=== PATIENT | female | born 1960 | race Asian ===

== ENCOUNTER 2016-12-28 09:12 | Emergency (ER) | payer OTHER ==
[~2016-12-28] VITALS: Ht 152.4 cm; Wt 63.6 kg
[~2016-12-28 09:12] MED LIST: ATEN25TA7 PO; CLOP75TA14; CREST10T PO; GLU500 PO; INSU100C4 SUBQ; INSU100V5 SQ; ONDA4TAB6 PO; POTASSIUM CHLORIDE PO; [UNRECOGNIZED DRUG - CODE] SL
[2016-12-28 09:22] VITALS: BP 159/85; PULSE 69; RESP 10; O2SAT 99
--- NOTE | 2016-12-28 09:57 | ED.REPORT ---
HPI-URI / Cough / Cold Date of Service Dec 28, 2016 ED Provider: Orquidea Hernandez MD Pt is a 56 year old female with a hx of DM, HTN, and a stroke presenting to the ED complaining of flu symptoms onset 4 days ago. She reports a subjective fever , chills, joint aching, nausea, vomiting x1 per day, malaise, headache and congestion. Denies cough or diarrhea. Pt has been taking Tylenol at home with some relief. Nursing Notes Stated Complaint: CHILLS Chief Complaint: FLU/Cold Symptoms Nursing Notes Reviewed: Yes Allergies: Coded Allergies: metoprolol (Verified Allergy, Intermediate, light headed, 12/10/15) potassium (Verified Allergy, Intermediate, light headed, 12/10/15) latex (Verified Allergy, Mild, 12/10/15) Iodinated Contrast Media - Oral and (Verified Allergy, Unknown, 12/10/15) Salicylates (Verified Allergy, Unknown, 12/10/15) Sulfa (Sulfonamide Antibiotics) (Verified Allergy, Unknown, 12/10/15) aspirin (Verified Allergy, Unknown, 12/10/15) felodipine (Verified Allergy, Unknown, 12/10/15) lisinopril (Verified Allergy, Unknown, 12/10/15) losartan (Verified Allergy, Unknown, 12/10/15) simvastatin (Verified Allergy, Unknown, 12/10/15) Scheduled ([potassium Chloride]) 20 MEQ PO DAILY Atenolol-Expunged Drug, Do Not Renew! (Atenolol-Expunged Drug, Do Not Renew!) 25 Mg Tablet 50 MG PO BID INSULIN LISPRO-Expunged Drug, Do Not Renew! (Humulog-Expunged Drug, Do Not Renew !) 100 Unit/1 Ml Vial 100 UNIT SQ TIDAC Insulin Glargine-Expunged Drug, Do Not Renew! (Lantus-Expunged Drug, Do Not Renew!) 100 Units/Ml Pen.ij.kit 30 UNIT SUBQ BID Metformin-Expunged Drug, Do Not Renew! (Metformin-Expunged Drug, Do Not Renew!) 500 Mg Tablet 500 MG PO BID Ondansetron ODT (Ondansetron ODT) 8 Mg Tab.rapdis 8 MG PO Q6H Rosuvastatin-Expunged Drug, Do Not Renew! (Crestor-Expunged Drug, Do Not Renew! ) 10 Mg Tablet 10 MG PO HS Therapeutic Sub: Rosuvastatin 5MG=Simvastatin 20MG; Rosuvastatin 10/20/40MG= Simvastatin 40MG Scheduled PRN Nitroglycerin-Expunged Drug, Do Not Renew! (Nitroglycerin-Expunged Drug, Do Not Renew!) 60 [place]/4.9 Gm [place] 0.4 SPRAY SL Q5MIN PRN PRN Ondansetron (Zofran) 4 Mg Tablet 4 MG PO Q4H PRN PRN For Nausea Miscellaneous Medications Clopidogrel-Expunged Drug, Do Not Renew! (Plavix-Expunged Drug, Do Not Renew!) 75 Mg Tablet General Time Seen by MD: 09:56 Chief Complaint Fever (Subjective) Hx Obtained From: Patient Arrived By: Walk-in Onset Occurred: 4 days ago Symptom Duration: Since onset Context: Immunization Status Immunizations Not Up to Date: Seasonal influenza Recent Healthcare: No recent doctor visit, No recent hospitalization Similar Sx Previous: No Past Medical History Past Medical History Reports: Diabetes mellitus, Hyperlipidemia, Hypertension, Stroke Past Surgical History no surgeries Smoking History Never Smoker Social History Alcohol Use: Denies alcohol use Drug Use: Denies drug use 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 Musculoskeletal: Reports: Joint pain Physical Exam Initial Vital Signs Vital Signs (First) Date Time Temp Pulse Resp B/P Pulse Ox O2 Delivery O2 Flow Rate FiO2 12/28/16 09:22 36.6 69 10 159/85 99 Room Air Initial VS: Reviewed, Vital signs abnormal Cardiovascular: Regular rate & rhythm, Heart sounds normal, Intact distal pulses Abdomen / GI: Soft, Non-tender, No guarding, No rebound, No distention Extremities: Vascular intact, Neuro intact, No swelling, No tenderness Skin: Warm, Dry, No cyanosis Neurologic: Alert, Oriented, Nonfocal Psychiatric: Mood/affect normal, Behavior normal, Normal thought content General/Constitutional: Awake, Alert, Well appearing ENT: Atraumatic, Airway patent, Mucous membranes moist Respiratory / Chest: Breath sounds NL, Breath sounds = bilat, No respiratory distress, No rales, No rhonchi, No wheezing, No retractions, No stridor Neck: No adenopathy, No masses Bilateral lateral neck tenderness. Re-Eval/Medical Decision Med Decision/Clinical Course The patient presents with multiple complaints are consistent with a viral upper respiratory infection. There is no sign of secondary infection such as pneumonia, tonsillitis, retropharyngeal abscess. The patient is well hydrated and can continue symptomatic treatment. Re-Evaluation/Progress : Time of Eval: 10:21 Patient Status: Condition improved Re-Evaluation/Progress Note: Discussed plan for discharge. Pt understands and agrees with plan. Counseled Regarding: Diagnosis, Lab results, Need for follow-up, When/why to return to ED Discharge & Departure Impression: Primary Impression: Upper respiratory infection URI type: unspecified URI Qualified Code: J06.9 - Acute upper respiratory infection, unspecified Disposition: Home Discharge Condition All VS Reviewed: Yes Condition: Improved Patient Instructions: Upper Respiratory Infection (ED) Additional Instructions: No dangerous cause of your symptoms was identified today. Drink plenty of fluids and get lots of rest. If you develop any new or worsening symptoms, or signs of infection, return to the ER. Referrals: Mary Kay Latif (PCP) Rashel Attestation Portions of this note were transcribed by Phyllis Colon. I, Dr. Hernandez personally performed the history, physical exam and medical decision-making; I reviewed and confirmed the accuracy of the information in the transcribed note. Signed by : Rashel Recinos, 12/28/2016 and 1020. copies to: Mary Kay Latif Jena M MD Dec 28, 2016 09:57 PHYLLIS COLON Dec 28, 2016 10:04
[2016-12-28] MEDS ORDERED: ONDA8TAB10 PO (10:08)
[2016-12-28] MEDS ORDERED: Ondansetron 8 mg ODT Tablet PO ONE (10:10)
[2016-12-28 10:25] VITALS: BP 130/77; PULSE 69; RESP 16; O2SAT 97
== END 2016-12-28 10:24 | disposition home or self-care (01) ==
LOC: SED 09:12
DX: J06.9 Acute upper respiratory infection, unspecified (principal); I10 Essential (primary) hypertension; E11.9 Type 2 diabetes mellitus without complications; Z86.73 Personal history of transient ischemic attack (TIA), and cerebral infarction without residual deficits; Z79.899 Other long term (current) drug therapy; Z79.4 Long term (current) use of insulin; Z79.84 Long term (current) use of oral hypoglycemic drugs; Z88.2 Allergy status to sulfonamides; Z88.8 Allergy status to other drugs, medicaments and biological substances; Z91.041 Radiographic dye allergy status; Z91.040 Latex allergy status

== ENCOUNTER 2017-06-26 12:46 | Emergency (ER) | payer OTHER ==
[~2017-06-26] VITALS: Ht 152.4 cm; Wt 65.0 kg
[~2017-06-26 12:46] MED LIST changes: +ONDA8TAB10 PO
[2017-06-26 12:51] VITALS: BP 168/83; PULSE 78; RESP 12; O2SAT 99
--- NOTE | 2017-06-26 13:13 | ED.REPORT ---
HPI-Dizziness / Weakness Date of Service Jun 26, 2017 ED Provider: Bryn Driver Pt is a 57 y/o female with a history of DM, hypertension, and hyperlipidemia who presents to the ED c/o hypoglycemia onset this morning. She states that she took her blood sugar this morning and it was above 100, but when she was at work , she noticed it going down to the 60's and 50's despite eating and drinking orange juice. Additional symptoms include generalized weakness, numbness/ tingling in her fingers, diaphoresis, temporary vision loss, neck pain, and neuropathy in her feet that is baseline. She denies fever, cough, SOB, or any other symptoms. She had this happen previously and saw enhanced environmental operator, Dr. Eb Collazo for it. He said that if her insulin pump ever stopped working again, she should contact him to adjust the settings on her pump. Nursing Notes Stated Complaint: BLOOD SUGAR LOW/DIABETES Chief Complaint: General Complaint Nursing Notes Reviewed: Yes Allergies: Coded Allergies: metoprolol (Verified Allergy, Intermediate, light headed, 12/10/15) potassium (Verified Allergy, Intermediate, light headed, 12/10/15) latex (Verified Allergy, Mild, 12/10/15) Iodinated Contrast- Oral and IV Dye (Verified Allergy, Unknown, 12/10/15) Salicylates (Verified Allergy, Unknown, 12/10/15) Sulfa (Sulfonamide Antibiotics) (Verified Allergy, Unknown, 12/10/15) aspirin (Verified Allergy, Unknown, 12/10/15) felodipine (Verified Allergy, Unknown, 12/10/15) lisinopril (Verified Allergy, Unknown, 12/10/15) losartan (Verified Allergy, Unknown, 12/10/15) simvastatin (Verified Allergy, Unknown, 12/10/15) Scheduled ([potassium Chloride]) 20 MEQ PO DAILY Atenolol-Expunged Drug, Do Not Renew! (Atenolol-Expunged Drug, Do Not Renew!) 25 Mg Tablet 50 MG PO BID INSULIN LISPRO-Expunged Drug, Do Not Renew! (Humulog-Expunged Drug, Do Not Renew !) 100 Unit/1 Ml Vial 100 UNIT SQ TIDAC Insulin Glargine-Expunged Drug, Do Not Renew! (Lantus-Expunged Drug, Do Not Renew!) 100 Units/Ml Pen.ij.kit 30 UNIT SUBQ BID Metformin-Expunged Drug, Do Not Renew! (Metformin-Expunged Drug, Do Not Renew!) 500 Mg Tablet 500 MG PO BID Ondansetron ODT (Ondansetron ODT) 8 Mg Tab.rapdis 8 MG PO Q6H Rosuvastatin-Expunged Drug, Do Not Renew! (Crestor-Expunged Drug, Do Not Renew! ) 10 Mg Tablet 10 MG PO HS Therapeutic Sub: Rosuvastatin 5MG=Simvastatin 20MG; Rosuvastatin 10/20/40MG= Simvastatin 40MG Scheduled PRN Nitroglycerin-Expunged Drug, Do Not Renew! (Nitroglycerin-Expunged Drug, Do Not Renew!) 60 [place]/4.9 Gm [place] 0.4 SPRAY SL Q5MIN PRN PRN Ondansetron (Zofran) 4 Mg Tablet 4 MG PO Q4H PRN PRN For Nausea Miscellaneous Medications Clopidogrel-Expunged Drug, Do Not Renew! 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 Musculoskeletal: Reports: Neck pain Physical Exam Initial Vital Signs Vital Signs (First) Date Time Temp Pulse Resp B/P Pulse Ox O2 Delivery O2 Flow Rate FiO2 06/26/17 12:51 35.8 78 12 168/83 99 Room Air Initial VS: Reviewed Neck: Supple, Full range of motion Skin: Warm, Dry, No cyanosis Psychiatric: Mood/affect normal, Behavior normal, Normal thought content General/Constitutional: Awake, Alert Appearance / Presentation: Positive: Obese Head / Eyes: Atraumatic, Normocephalic Respiratory / Chest: Atraumatic, Breath sounds NL, Breath sounds = bilat, No respiratory distress Cardiovascular: Heart rate NL, Regular rhythm, Heart sounds NL Neurologic: Oriented X3, Speech NL Lower Extremity / Pelvis / MS: Atraumatic, Full range of motion Sensory deficit to toes symmetrically Upper Extremity / MS: Atraumatic, Full range of motion Sensory deficit to finger tips symmetrically Re-Eval/Medical Decision Med Decision/Clinical Course Patient is sent directly to endocrinology. Source of Hx: Old records Re-Evaluation/Progress : Time of Eval: 14:01 Re-Evaluation/Progress Note: Patient rechecked. Discussed plan for discharge to endocrinology. Patient understands and agrees with plan. F/U instructions and RTER warnings given. All questions addressed at this time. Consultation : Referral / Consult Name: Eb Collazo MD Call Returned at: 13:53 Food Safety Director: Will see patient, Agrees with eval, Agrees with plan Note: Discussed pt's case with enhanced environmental operator, Dr. Collazo. He recommends that the pt be discharged to endocrinology to have her insulin pump settings adjusted. Counseled Regarding: Diagnosis, Lab results, Need for follow-up, When/why to return to ED Patient Discharge & Departure Impression: Primary Impression: Hypoglycemia Disposition: Home Discharge Condition All VS Reviewed: Yes Condition: Stable Additional Instructions: Go directly to the endocrine clinic to have your pump adjusted. Return to the ER as needed. Referrals: Mary Kay Latif (PCP) Eb Collazo MD Scribe Attestation Portions of this note were transcribed by Symone Elizondo. I, Dr. Driver, personally performed the history, physical exam and medical decision-making; I reviewed and confirmed the accuracy of the information in the transcribed note. Signed by Rashel Baird, 06/26/17. Eb Collazo MD; Mary Kay Latif Timothy Gautam JORGE Jun 26, 2017 13:13 Symone Elizondo Jun 26, 2017 13:41
[2017-06-26 14:08] VITALS: BP 156/70; PULSE 80; RESP 20; O2SAT 96
== END 2017-06-26 14:09 | disposition home or self-care (01) ==
LOC: SED 12:46
DX: E11.649 Type 2 diabetes mellitus with hypoglycemia without coma (principal); E11.40 Type 2 diabetes mellitus with diabetic neuropathy, unspecified; R20.2 Paresthesia of skin; R20.0 Anesthesia of skin; H54.7 Unspecified visual loss; M54.2 Cervicalgia; I10 Essential (primary) hypertension; E78.5 Hyperlipidemia, unspecified; Z86.73 Personal history of transient ischemic attack (TIA), and cerebral infarction without residual deficits; Z88.2 Allergy status to sulfonamides; Z88.8 Allergy status to other drugs, medicaments and biological substances; Z91.040 Latex allergy status; Z91.041 Radiographic dye allergy status; Z88.6 Allergy status to analgesic agent
CPT/HCPCS: 82948; 99284; G0463